=== PATIENT | male | born 1990 | race Two or more races ===

== ENCOUNTER 2020-03-05 17:45 | Emergency (ER) | payer OTHER, SELFPAY ==
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
[2020-03-05 18:00] VITALS: BP 154/100; PULSE 98; RESP 20; TEMP 37.1; O2SAT 100
--- NOTE | 2020-03-05 18:07 | PC.NURSE ---
Brook spoke with Dr Burgos at [facility] for transfer. Dr Burgos Refused transfer
--- NOTE | 2020-03-05 18:11 | PC.NURSE ---
Brook PARDO spoke with Danielle GUO at [facility]
== END 2020-03-05 18:18 | disposition short-term general hospital (02) ==
PROVIDERS: Emergency Provider Nurse Practitioner
DX: M54.2 Cervicalgia (principal); S29.012A Strain of muscle and tendon of back wall of thorax, initial encounter; V43.53XA Car driver injured in collision with pick-up truck in traffic accident, initial encounter; F41.9 Anxiety disorder, unspecified; F32.9 Major depressive disorder, single episode, unspecified; I10 Essential (primary) hypertension
CPT/HCPCS: 99212; G0463